=== PATIENT | male | born 1960 | race Caucasian/White ===

== ENCOUNTER 2016-12-08 12:20 | Observation (INO) | payer OTHER, MEDICARE ==
[2016-12-08] MEDS ORDERED: POTASSIUM CHLO20 ME3 PO (14:00)
[2016-12-08] MEDS ORDERED: NITROSTAT0.4 MG/TAB SL (14:01)
[2016-12-08] MEDS ORDERED: NEXIUM40 M1 PO (14:01)
[2016-12-08] MEDS ORDERED: TRICOR145 M2 PO (14:02)
[2016-12-08] MEDS ORDERED: DEMADEX20 M1 PO (14:04)
[2016-12-08] MEDS ORDERED: COREG25 M1 PO ×2 (14:05→14:06)
[2016-12-08] MEDS ORDERED: KEFLEX500 M4 PO (14:07)
[2016-12-08] MEDS ORDERED: CIALIS20 M1 PO (14:08)
[2016-12-08] MEDS ORDERED: ZOCOR20 M1 PO (14:09)
[2016-12-08] MEDS ORDERED: METOLAZONE2.5 M1 PO (14:09)
[2016-12-08] MEDS ORDERED: ENTRESTO 49 MG1 EACH PO (14:10)
[2016-12-08] MEDS ORDERED: ALDACTONE25 M1 PO (14:10)
[2016-12-08] MEDS ORDERED: ECOTRIN325 M2 PO (14:12)
[2016-12-08 18:01] LABS: ANION GAP 9 mmol/L (0-20); BLOOD UREA NITROGEN 19 mg/dl (6-24); CALCIUM 9.5 mg/dl (8.5-10.5); CARBON DIOXIDE-VENOUS 40 mmol/L (22-32); CHLORIDE 87 mmol/l (96-110); CREATININE 1.26 mg/dl (0.60-1.30); GLUCOSE 285 mg/dL (70-110); MAGNESIUM 2.3 mg/dl (1.3-2.6); POTASSIUM 3.2 mmol/L (3.7-5.1); SODIUM 133 mmol/L (135-145); eGFR VALUE FOR BLACK 74 mL/Min
== END 2016-12-08 19:55 ==
LOC: PCUB 12:20
PROVIDERS: ADMIT Internal Medicine
DX: E10.65 Type 1 diabetes mellitus with hyperglycemia (principal); E87.1 Hypo-osmolality and hyponatremia; I42.9 Cardiomyopathy, unspecified; I11.0 Hypertensive heart disease with heart failure; I50.22 Chronic systolic (congestive) heart failure; E87.6 Hypokalemia; E78.5 Hyperlipidemia, unspecified; N28.9 Disorder of kidney and ureter, unspecified; G47.33 Obstructive sleep apnea (adult) (pediatric); Z95.810 Presence of automatic (implantable) cardiac defibrillator
CPT/HCPCS: G0378; G0379; J1815; J3480